=== PATIENT | female | born 1965 | race Caucasian/White ===

== ENCOUNTER 2022-05-30 16:12 | Outpatient (CLI) | payer OTHER | END 2022-05-30 16:13 | disposition home or self-care (01) | LOC: MADRAD 16:12 | PROVIDERS: ATTEND Nurse Practitioner Family | DX: S39.012A Strain of muscle, fascia and tendon of lower back, initial encounter (principal); M47.816 Spondylosis without myelopathy or radiculopathy, lumbar region | CPT/HCPCS: 72100 ==

== ENCOUNTER 2025-01-28 17:58 | Emergency (ER) | payer BC ==
[2025-01-28 18:28] LABS: #Basophils 0.0 thou/uL (0.0-0.2); #Eosinophils 0.0 thou/uL (0.0-0.7); #Lymphocytes 0.8 thou/uL (1.20-3.40); #Monocytes 0.2 thou/uL (0.11-0.59); #Neutrophils 1.7 thou/uL (1.40-6.50); %Basophils 1.4 % (0.0-1.0); %Eosinophils 0.6 % (0.0-10.0); %Lymphocytes 29.5 % (21.0-51.0); %Monocytes 7.7 % (0.0-10.0); %Neutrophils 60.8 % (42.0-75.0); Hematocrit 38.6 % (36.0-47.0); Hemoglobin 13.0 g/dL (12.0-16.0); Mean Corpuscular Hemoglobin 31.2 pg (27.0-31.0); Mean Corpuscular Volume 92.5 fl (78.0-98.0); Platelet Count 223 10x3/uL (130-400); Red Blood Cell (RBC) Count 4.17 mill/uL (4.20-5.40); White Blood Cell (WBC) Count 2.8 10x3/uL (4.8-10.8)
[2025-01-28] MEDS ORDERED: Boostrix 0.5 ML (Tdap) VIAL (>/=7 yrs of age) ONE (18:30)
[2025-01-28] MEDS ORDERED: Multivit, Therapeutic 1 TAB PO SCH (18:45)
[2025-01-28 19:09] LABS: ALT (SGPT) 57 U/L (Less than 34); AST (SGOT) 62 U/L (11-34); Acetaminophen Less than 10 mcg/mL (Less than 10); Albumin 3.9 g/dL (3.1-4.5); Alkaline Phosphatase 54 U/L (40-110); Anion Gap 19 mmol/L (10-20); BUN (Urea Nitrogen) 7 mg/dL (9.8-20.1); Bilirubin, Total 0.5 mg/dL (0.3-1.2); Calc. Creatinine Clearance 0 mL/min (70-130); Calcium 8.3 mg/dL (7.8-10.44); Carbon Dioxide 22 mmol/L (22-29); Chloride 101 mmol/L (98-107); Globulin 2.8 g/dL (2.4-3.5); Glucose 91 mg/dL (70-105); Magnesium 2.2 mg/dL (1.6-2.6); Potassium 4.1 mmol/L (3.5-5.1); Salicylate Less than 8.0 mg/dL (Less than 8.0); Sodium 138 mmol/L (136-145); Troponin I 0.032 ng/mL (< 0.028)
== END 2025-01-28 20:19 | disposition home or self-care (01) ==
LOC: MADERS 17:58
DX: S51.812A Laceration without foreign body of left forearm, initial encounter (principal); S00.83XA Contusion of other part of head, initial encounter; E86.0 Dehydration; R79.89 Other specified abnormal findings of blood chemistry; R74.01 Elevation of levels of liver transaminase levels; I48.91 Unspecified atrial fibrillation; I10 Essential (primary) hypertension; F10.239 Alcohol dependence with withdrawal, unspecified; F17.290 Nicotine dependence, other tobacco product, uncomplicated; Z79.899 Other long term (current) drug therapy; Z95.0 Presence of cardiac pacemaker; Z23 Encounter for immunization; W01.0XXA Fall on same level from slipping, tripping and stumbling without subsequent striking against object, initial encounter
CPT/HCPCS: 12002; 36415; 70450; 80053; 80307; 83735; 84484; 85025; 90471; 90715; 93005; 94760; 96374; J3411